=== PATIENT | male | born 1980 | race African-American/Black ===

== ENCOUNTER 2016-11-01 03:31 | Emergency (ER) | payer OTHER ==
[~2016-11-01] VITALS: Ht 180.3 cm; Wt 128.5 kg
[~2016-11-01 03:31] MED LIST: HYDR-3533 PO; METO10TA PO; PROP80CA PO
[2016-11-01 03:35] VITALS: BP 135/65; PULSE 50; RESP 14; TEMP 98.3; O2SAT 98
[2016-11-01] MEDS ORDERED: SODIUM CHLOR 0.9% 1000 ML INJ 1,000 ML IV ONE (04:06)
[2016-11-01] MEDS ORDERED: ONDANSETRON HCL 4 MG/2 ML VIAL IVP ONE (04:15)
[2016-11-01] MEDS ORDERED: HYDROmorphone HCL PF 1 MG/ML VIAL IVS ONE (04:15)
[2016-11-01] MEDS ORDERED: KETOROLAC TROMETHAMINE 30 MG/ML (IVP) VIAL IVP ONE (04:15)
[2016-11-01] MEDS ORDERED: SODIUM CHLORIDE 0.9% FLUSH 10 ML FLUSH IVF PRN (04:15)
[2016-11-01 04:17] LABS: AUTOMATED NEUTROPHIL # 9.7 TH/MM3 (1.8-7.7); BASOPHIL # 0.1 TH/MM3 (0-0.2); BASOPHIL % 0.5 % (0.0-2.0); EOSINOPHIL % 0.1 % (0.0-4.0); HEMATOCRIT 40.8 % (39.0-51.0); HEMO FLAGS DIFF FINAL; LYMPH % 14.7 % (9.0-44.0); LYMPHOCYTE # 1.7 TH/MM3 (1.0-4.8); MEAN CELL VOLUME 86.4 FL (80.0-100.0); MEAN CORPUSCULAR HEMOGLOBIN 28.4 PG (27.0-34.0); MEAN CORPUSCULAR HGB CONC 32.8 % (32.0-36.0); MONO % 2.1 % (0.0-8.0); NEUT % 82.6 % (16.0-70.0); PLATELET COUNT 209 TH/MM3 (150-450); RED BLOOD COUNT 4.73 MIL/MM3 (4.50-5.90); RED CELL DISTRIBUTION WIDTH 12.6 % (11.6-17.2); WHITE BLOOD COUNT 11.7 TH/MM3 (4.0-11.0)
[2016-11-01 04:24] LABS: POTASSIUM 4.1 MEQ/L (3.5-5.1)
[2016-11-01 04:27] LABS: BICARBONATE 28.6 MEQ/L (21.0-32.0)
[2016-11-01 04:42] LABS: BLOOD, URINE LARGE (NEG); GLUCOSE,URINE NEG (NEG); KETONE, URINE NEG (NEG); NITRITE,URINE NEG (NEG)
[2016-11-01 04:50] LABS: URINE COLOR YELLOW (YELLW/STRAW)
[2016-11-01 04:51] LABS: COMMENT (UR) CULT NOT INDICATED; CULTURE IF INDICATED CULT NOT INDICATED; SQUAMOUS EPITHELIAL CELL URINE 0-5 /hpf (0-5); WBC, URINE 0-2 /hpf (0-5)
[2016-11-01 05:00] VITALS: RESP 20
--- NOTE | 2016-11-01 05:11 | RADHPO ---
EXAM DATE/TIME: 11/01/2016 04:19 [place] COMPARISON: CT ABDOMEN & PELVIS W/O CONTRAST, January 27, 2015, 10:05. INDICATIONS : Left flank pain and dysuria. ORAL CONTRAST: No oral contrast ingested. RADIATION DOSE: 27.6 CTDIvol (mGy) MEDICAL HISTORY : Renal calculi. SURGICAL HISTORY : None. ENCOUNTER: Initial ACUITY: 1 day PAIN SCALE: 7/10 LOCATION: Left flank TECHNIQUE: Volumetric scanning of the abdomen and pelvis was performed. Using automated exposure control and ad justment of the mA and/or kV according to patient size, radiation dose was kept as low as reasonably achievable to obtain optimal diagnostic quality images. FINDINGS: LOWER LUNGS: The visualized lower lungs are clear. LIVER: Homogeneous density without lesion. There is no dilation of the biliary tree. No calcified gallston es. SPLEEN: Normal size without lesion. PANCREAS: Within normal limits. KIDNEYS: 2 distal left ureteral stones are observed. These are at the UVJ. These measure 3 mm and 2 mm respect ively. There is mild hydronephrosis and hydroureter on the left. A 2 mm nonobstructing stone is seen involving the right kidney. No perinephric fluid collections. ADRENAL GLANDS: Within normal limits. VASCULAR: There is no aortic aneurysm. BOWEL/MESENTERY: The stomach, small bowel, and colon demonstrate no acute abnormality. There is no free intraperitone al air or fluid. ABDOMINAL WALL: Within normal limits. RETROPERITONEUM: There is no lymphadenopathy. BLADDER: No wall thickening or mass. REPRODUCTIVE: Within normal limits. INGUINAL: There is no lymphadenopathy or hernia. MUSCULOSKELETAL: Within normal limits for patient age. CONCLUSION: 1. 2 small stones at the left UVJ measuring 3 mm and 2 mm respectively. There is mild obstruction. 2. 2 mm nonobstructing right renal stone. Artis Sloan Jr., MD on November 01, 2016 at 5:06 Board Certified Radiologist. This report was verified electronically.
[2016-11-01] MEDS ORDERED: IBUP800T23 PO (05:25)
[2016-11-01] MEDS ORDERED: PROM25TA5 PO (05:25)
[2016-11-01] MEDS ORDERED: PERC7.5T13 PO (05:25)
[2016-11-01] MEDS ORDERED: TAMS5CAP PO (05:25)
[2016-11-01] MEDS ORDERED: TAMSULOSIN HCL 0.4 MG CAP PO ONE (05:30)
--- NOTE | 2016-11-01 05:36 | PD ---
HPI Chief Complaint: Flank/Kidney Pain Time Seen by Provider: 03:58 Travel History International Travel<30 days: No Contact w/Intl Traveler<30days: No Traveled to known affect area: No History of Present Illness HPI The patient is a 36-year-old male that complains of left flank pain consistent with his previous history of kidney stones. The last time he was any had right flank pain, this was 2 years ago. He denies any dysuria, frequency or urgency or fever. He also complains of nausea and vomiting. PFSH Past Medical History Diminished Hearing: No Headaches: Yes Kidney Stones: Yes Migraines: Yes (CLUSTER) Tetanus Vaccination: > 5 Years Influenza Vaccination: Yes Social History Alcohol Use: No Tobacco Use: No Substance Use: No Allergies-Medications (Allergen,Severity, Reaction): Coded Allergies: No Known Allergies (Verified , 01/27/15) Reported Meds & Prescriptions Reported Meds & Active Scripts Active Phenergan (Promethazine HCl) 25 Mg Tab 25 Mg PO Q6H PRN Percocet (Oxycodone-Acetaminophen) 7.5-325 mg Tab 1 Tab PO Q4H PRN Ibuprofen 800 Mg Tab 800 Mg PO TID Flomax (Tamsulosin HCl) 0.4 Mg Cap 0.4 Mg PO HS Reglan (Metoclopramide HCl) 10 Mg Tab 10 Mg PO Q8H PRN NAUSEA AND VOMITING Lortab 5 mg/325 mg (Hydrocodone/Acetaminophen 5 mg/325 mg) 1 Tab 1 Tab PO Q6H PRN Propranolol ER (Propranolol HCl) 80 Mg Tab 80 Mg PO BID Review of Systems Except as stated in HPI: all other systems reviewed are Neg Physical Exam Narrative GENERAL: The patient is alert, oriented 3 in moderate to severe distress with his left flank pain. His vital signs are normal except for heart rate of 50. SKIN: Focused skin assessment warm/dry. HEAD: Atraumatic. Normocephalic. EYES: Pupils equal and round. No scleral icterus. No injection or drainage. ENT: No nasal bleeding or discharge. Mucous membranes pink and moist. NECK: Trachea midline. No JVD. CARDIOVASCULAR: Regular rate and rhythm. No murmur appreciated. RESPIRATORY: No accessory muscle use. Clear to auscultation. Breath sounds equal bilaterally. GASTROINTESTINAL: Abdomen soft, with very slight tenderness to direct palpation in the left flank and left UVJ area, nondistended. Hepatic and splenic margins not palpable. No guarding or rebound is present. MUSCULOSKELETAL: No obvious deformities. No clubbing. No cyanosis. No edema. NEUROLOGICAL: Awake and alert. No obvious cranial nerve deficits. Motor grossly within normal limits. Normal speech. PSYCHIATRIC: Appropriate mood and affect; insight and judgment normal. Data Data Last Documented VS Vital Signs Date Time Temp Pulse Resp B/P Pulse Ox O2 Delivery O2 Flow Rate FiO2 11/01/16 05:14 20 11/01/16 03:35 98.3 50 135/65 98 Room Air Orders Complete Blood Count With Diff (11/01/16 04:06) Basic Metabolic Panel (Bmp) (11/01/16 04:06) Urinalysis - C+S If Indicated (11/01/16 04:06) Ct Abd/Pel W/O Iv Contrast (11/01/16 04:06) Ecg Monitoring (11/01/16 04:06) Iv Access Insert/Monitor (11/01/16 04:06) Ketorolac Inj (Toradol Inj) (11/01/16 04:15) Ondansetron Inj (Zofran Inj) (11/01/16 04:15) Sodium Chloride 0.9% Flush (Ns Flush) (11/01/16 04:15) Sodium Chlor 0.9% 1000 Ml Inj (Ns 1000 M (11/01/16 04:06) Hydromorphone Pf Inj (Dilaudid Pf Inj) (11/01/16 04:15) Tamsulosin (Flomax) (11/01/16 05:30) Labs Laboratory Tests Test 11/01/16 11/01/16 04:10 04:30 White Blood Count 11.7 TH/MM3 Red Blood Count 4.73 MIL/MM3 Hemoglobin 13.4 GM/DL Hematocrit 40.8 % Mean Corpuscular Volume 86.4 FL Mean Corpuscular Hemoglobin 28.4 PG Mean Corpuscular Hemoglobin 32.8 % Concent Red Cell Distribution Width 12.6 % Platelet Count 209 TH/MM3 Mean Platelet Volume 9.6 FL Neutrophils (%) (Auto) 82.6 % Lymphocytes (%) (Auto) 14.7 % Monocytes (%) (Auto) 2.1 % Eosinophils (%) (Auto) 0.1 % Basophils (%) (Auto) 0.5 % Neutrophils # (Auto) 9.7 TH/MM3 Lymphocytes # (Auto) 1.7 TH/MM3 Monocytes # (Auto) 0.2 TH/MM3 Eosinophils # (Auto) 0.0 TH/MM3 Basophils # (Auto) 0.1 TH/MM3 CBC Comment DIFF FINAL Differential Comment Sodium Level 139 MEQ/L Potassium Level 4.1 MEQ/L Chloride Level 103 MEQ/L Carbon Dioxide Level 28.6 MEQ/L Anion Gap 7 MEQ/L Blood Urea Nitrogen 17 MG/DL Creatinine 1.30 MG/DL Estimat Glomerular Filtration 75 ML/MIN Rate Random Glucose 139 MG/DL Calcium Level 9.1 MG/DL Urine Color YELLOW Urine Turbidity CLEAR Urine pH 7.0 Urine Specific [place] 1.025 Urine Protein 30 mg/dL Urine Glucose (UA) NEG mg/dL Urine Ketones NEG mg/dL Urine Occult Blood LARGE Urine Nitrite NEG Urine Bilirubin NEG Urine Leukocyte Esterase NEG Urine RBC 50-99 /hpf Urine WBC 0-2 /hpf Urine Squamous Epithelial 0-5 /hpf Cells Urine Bacteria NONE /hpf Microscopic Urinalysis Comment CULT NOT INDICATED MDM Medical Decision Making Medical Screen Exam Complete: Yes Emergency Medical Condition: Yes Medical Record Reviewed: Yes Interpretation(s) The CT abdomen/pelvis shows 2 stones in the left UVJ. One stone is 2 mm and the other is 3 mm. Differential Diagnosis Left ureteral stone, urinary tract infection, diverticulitis, pancreatitis unlikely Narrative Course The patient has a left ureteral stone. He has no pain or nausea now and his abdomen is soft and nontender. He may have passed the stone or is simply feeling the effects of medication that was given here. Plan: The patient will be given prescriptions for Motrin, Flomax, Phenergan and Percocet. He needs to follow-up with his urologist next week. Diagnosis Primary Impression: Left ureteral calculus Additional Instructions: Follow-up with your urologist this week. Drink plenty of liquids and take the Flomax and Motrin regularly. As needed drugs are the Percocet and Phenergan. Do not drink alcohol or drive on the Percocet or Phenergan. Scripts Promethazine (Phenergan)25 Mg Tab25 Mg PO Q6H PRN (Nausea/Vomiting) #30 TAB Ref 0 Prov:Maikel Rome MD 11/01/16 Oxycodone-Acetaminophen (Percocet)7.5-325 mg Tab1 Tab PO Q4H PRN (PAIN) #30 TAB Ref 0 Prov:Maikel Rome MD 11/01/16 Ibuprofen 800 Mg Kbf130 Mg PO TID #44 TAB Ref 0 Prov:Maikel Rome MD 11/01/16 Tamsulosin (Flomax)0.4 Mg Cap0.4 Mg PO HS #30 CAP Ref 0 Prov:Maikel Rome MD 11/01/16 Disposition: 01 DISCHARGE HOME Condition: Stable Maikel Rome MD Nov 01, 2016 05:36
[2016-11-01 06:02] VITALS: BP 110/50
== END 2016-11-01 06:25 | disposition home or self-care (01) ==
LOC: PHED 03:31
DX: N20.1 Calculus of ureter (principal); Z87.442 Personal history of urinary calculi; R11.2 Nausea with vomiting, unspecified
CPT/HCPCS: 74176; 80048; 81001; 85025; 96361; 96374; 96375; 99284; J1170; J1885; J2405; J7030